=== PATIENT | female | born 1990 | race Caucasian/White ===

== ENCOUNTER 2016-05-21 18:44 | Emergency (ER) | payer OTHER ==
[~2016-05-21 18:44] MED LIST: ACET50TA PO; ANUS2.5C2 TOP; DOCU10CA PO; FE T325T PO; IBUP600T26 PO; MILKSUS PO; PRENTAB9 PO
[2016-05-21] MEDS ORDERED: KETOROLAC 30 MG/ML VIAL (J1885) As Ordered ONE (19:30)
[2016-05-21 19:47] LABS: BASO % 0.4 % (0.0-1.0); EOS # 0.1 K/mm3 (0.0-0.50); EOS % 1.7 % (0.0-3.0); LARGE UNSTAINED CELL # 0.2 K/mm3 (0.0-0.4); LYMPH # 2.6 K/mm3 (1.5-6.5); LYMPH % 41.7 % (24.0-44.0); MEAN CORPUSCULAR HEMOGLOBIN 29.2 pg (27.0-33.0); MEAN CORPUSCULAR HGB CONC 33.2 g/dl (32.0-36.5); MEAN CORPUSCULAR VOLUME 87.8 fl (80.0-96.0); MONO # 0.4 K/mm3 (0.0-0.8); MONO % 6.3 % (0.0-5.0); NEUTROPHILS # 2.9 K/mm3 (1.8-7.7); NEUTROPHILS % 46.9 % (36.0-66.0); PLATELET COUNT, AUTOMATED 214 k/mm3 (150-450); RED CELL DISTRIBUTION WIDTH 12.7 % (11.5-14.5); WHITE BLOOD COUNT 6.2 K/mm3 (4.0-10.0)
[2016-05-21 20:20] LABS: ALBUMIN 4.1 GM/DL (3.2-5.2); ALBUMIN/GLOBULIN RATIO 1.08 (1.00-1.93); ALKALINE PHOSPHATASE 138 U/L (45-117); ALT/SGPT 20 U/L (12-78); AMYLASE 47 U/L (25-115); ANION GAP 7 MEQ/L (8-16); AST/SGOT 17 U/L (15-37); BILIRUBIN,DIRECT < 0.1 MG/DL (0.0-0.2); BILIRUBIN,TOTAL 0.2 MG/DL (0.2-1.0); BLOOD UREA NITROGEN 17 MG/DL (7-18); CALCIUM LEVEL 8.7 MG/DL (8.5-10.1); CARBON DIOXIDE LEVEL 28 MEQ/L (21-32); CHLORIDE LEVEL 108 MEQ/L (98-107); CREATININE FOR GFR 0.66 MG/DL (0.55-1.02); GLOMERULAR FILTRATION RATE > 60.0 (>60); GLUCOSE, FASTING 97 MG/DL (70-105); POTASSIUM SERUM 3.7 MEQ/L (3.5-5.1); SODIUM LEVEL 143 MEQ/L (136-145); TOTAL PROTEIN 7.9 GM/DL (6.4-8.2)
--- NOTE | 2016-05-21 21:10 | REPUSA ---
CT of the abdomen and pelvis without contrast Clinical statement: Pain. Technique: Multiple axial CT images were obtained from the base of the lungs to the floor of the pelv is utilizing 5 mm axial slices without administration of contrast. Coronal and sagittal reconstructio ns were also obtained. No comparison is available. Findings: Chest: The visualized lung bases are clear. Abdomen: The kidneys are normal in size bilaterally. There is no evidence of hydronephrosis. A 1 mm n onobstructing stone is seen in the left kidney. The liver, spleen, pancreas, gallbladder and adrenal glands are unremarkable. The aorta demonstrates normal caliber and contour. There is no abdominal lym phadenopathy or ascites. Pelvis: Moderate amount of stool fills the colon.The bowel is otherwise unremarkable, with no obstruc tive or inflammatory changes. The appendix is normal. The urinary bladder is within normal limits. Th ere is no pelvic lymphadenopathy or ascites. The other pelvic structures appear unremarkable. Bones: There are no suspicious osseous abnormalities seen. Impression: 1. Mild constipation. No obstructive or inflammatory bowel changes. 2. 1 mm nonobstructing stone in the left kidney. No evidence of hydronephrosis.
--- NOTE | 2016-05-21 21:44 | EDDOCDS ---
Physician Documentation [facility] Name: Lyndsey Waters Age: 25 yrs Sex: Female : 1990 Arrival Date: 05/21/2016 Time: 18:44 Bed I3 / M3 Private MD: Donny Shi Disposition: 05/21/16 21:35 Discharged to Home/Self Care. Impression: Constipation, Calculus of kidney - LEFT, NONOBSTRUCTING. - Condition is Stable. - Discharge Instructions: Constipation, Adult, Kidney Stones. - Prescriptions for Miralax 17 gram/dose - take 17 gram by ORAL route once daily As needed dilute in 8 ounces of water or juice; 1 bottle. - Medication Reconciliation, Local Pharmacy Hours form. - Follow up: Donny Shi; When: 2 - 3 days; Reason: Recheck today's complaints, Continuance of care. - Problem is new. - Symptoms have improved. Historical: - Allergies: no known allergies; - Home Meds: 1. Depo-Provera 150 mg/mL IM syrg every 3 mo (Last dose: Unknown) - PMHx: L-ovarian cyst; - PSHx: Tonsillectomy; Adenoidectomy; - Social history: Smoking status: Patient states was never smoker of tobacco. Patient/guardian denies using alcohol, street drugs, No barriers to communication noted, The patient speaks fluent French, Speaks appropriately for age. - Family history: Not pertinent. - : The pt / caregiver states he / she is not on anticoagulants. Home medication list is obtained from the patient. - Exposure Risk Screening:: None identified. 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 3 in. (160.02 cm) (R); Pain 7/10; 21:41 BP 110 / 69; Pulse 89; Resp 16; Temp 97.4; Pulse Ox 99% on R/A; Pain 4/10; ld5 18:46 Body Mass Index 20.73 (53.07 kg, 160.02 cm) lr2 MDM: 19:27 UCG by Nursing ordered. ck7 19:28 Undress patient appropriately for examination ordered. ck7 19:28 IV Saline Lock ordered. ck7 19:28 NS 0.9% 1000 ml IV at bolus once ordered. ck7 19:28 Ondansetron 4 mg IVP once ordered. ck7 19:28 ketorolac 30 mg IVP once ordered. ck7 19:28 UA Ordered. EDMS 19:28 Urine Culture Ordered. EDMS 19:29 Amylase Ordered. EDMS 19:29 Basic Metabolic Profile Ordered. EDMS 19:29 CBC with Diff Ordered. EDMS 19:29 Lipase Ordered. EDMS 19:29 Liver Profile Ordered. EDMS 19:29 NOTHING BY MOUTH+DIET ordered. EDMS 20:19 Financial registration complete. zo 20:26 UA Reviewed. ck7 20:26 Basic Metabolic Profile Reviewed. ck7 20:26 CBC with Diff Reviewed. ck7 20:26 Liver Profile Reviewed. ck7 20:26 Amylase Reviewed. ck7 20:26 Lipase Reviewed. ck7 20:29 CT ABD & PELVIS: No Contrast Ordered. EDMS 20:33 [facility] [place] [facility] [place] was scanned into [employer] and attached to record. zo 21:30 CT ABD & PELVIS: No Contrast Reviewed. ck7 Point of Care Testing: Urine : 19:36 hCG Reading: Negative; Control Reading: Positive; jo3 Ranges: Administered Medications: 19:50 Drug: ketorolac 30 mg [ketorolac 30 mg/mL (1 mL) injection solution (1 mL)] Route: IVP; ld5 Site: left antecubital; 21:43 Follow up: Response: Pain is decreased ld5 19:51 Drug: NS 0.9% 1000 ml [sodium chloride 0.9 % intravenous solution] Route: IV; Rate: ld5 bolus; Site: left antecubital; 21:43 Follow up: IV Status: Completed infusion; IV Intake: 1000ml ld5 19:51 Drug: Ondansetron 4 mg [ondansetron HCl 2 mg/mL intravenous solution (2 mL)] Route: ld5 IVP; Site: left antecubital; 21:43 Follow up: Response: Nausea is decreased ld5 Signatures: Dispatcher [employer] EDMS Emily Chaudhary Laura, RN RN ld5 Manas Trammell, RPA-C RPA-Cck7 Teresa Gilmore, RN RN ttb The chart was reviewed and I authenticate all verbal orders and agree with the evaluation and treatment provided.Attachments: 20:33 [facility] Payment Agreement zo MTDD
--- NOTE | 2016-05-21 21:45 | EDDOCDS ---
Nurse's Notes [facility] Name: Lyndsey Waters Age: 25 yrs Sex: Female : 1990 Arrival Date: 05/21/2016 Time: 18:44 Bed I3 / M3 Private MD: Donny Shi Diagnosis: Constipation;Calculus of kidney-LEFT, NONOBSTRUCTING Presentation: 05/21 18:54 Presenting complaint: Patient states: right flank pain started approx 2 days ago. ttb Denies symptoms. Nauseated. Acute neurological deficits are not present. Mechanism of Injury: No Mechanism of Injury. Adult Sepsis Screening: The patient does not have new or worsening altered mentation. Patient's respiratory rate is less than 22. Systolic blood pressure is greater than 100. Patient has a qSOFA score of 0- Negative Sepsis Screen. Suicide/Homicide risk assessment- the patient denies having any suicidal and/or homicidal ideations and does not present with any other emotional, behavioral or mental health complaints. Status: Patient is not a service delivery director or dependent. Transition of care: patient was not received from another setting of care. 18:54 Acuity: MONET Level 3 ttb 18:54 Method Of Arrival: Walkin/Carried/Asstd ttb Triage Assessment: 18:56 General: Appears in no apparent distress, well nourished, well groomed, Behavior is ttb appropriate for age, cooperative, pleasant. Pain: Location: right lower abd. HIV screening NA for this visit Offered previously. Neurological: Level of Consciousness is awake, alert. Respiratory: Breath sounds are absent bilaterally. GI: Reports lower abdominal pain, nausea. Derm: Skin is normal. Musculoskeletal: Range of motion intact in all extremities. Injury Description: No known injury. 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 Depo-Provera 150 mg/mL IM syrg every 3 mo (Last dose: Unknown) - PMHx: L-ovarian cyst; - PSHx: Tonsillectomy; Adenoidectomy; - Social history: Smoking status: Patient states was never smoker of tobacco. Patient/guardian denies using alcohol, street drugs, No barriers to communication noted, The patient speaks fluent Greek, Speaks appropriately for age. - Family history: Not pertinent. - : The pt / caregiver states he / she is not on anticoagulants. Home medication list is obtained from the patient. - Exposure Risk Screening:: None identified. Screenin:51 Screening information is obtained from the patient. Fall risk: No risks identified. ld5 Assistance ADL's: requires no assistance with activities of daily living. Abuse/DV Screen: The patient / caregiver reports he/she is: not in a situation that causes fear, pain or injury. Nutritional screening: No deficits noted. Advance Directives: There is no active DNR order. home support is adequate. Assessment: 19:07 General: Appears in no apparent distress, Behavior is appropriate for age, cooperative. nn1 Pain: Location: right mid back, right low back, right upper quadrant and right lower quadrant Quality of pain is described as sharp, Pain began 2-3 days ago. Neurological: Level of Consciousness is awake, alert, obeys commands, Oriented to person, place, time. GI: Abdomen is non- distended Bowel sounds present X 4 quads. Abd is soft X 4 quads Abd is tender to palpation in right upper quadrant and right lower quadrant Reports nausea. : Denies burning with urination, pain vaginal bleeding. Derm: Skin is pink, warm & dry. 19:52 General: Appears in no apparent distress, Behavior is appropriate for age, cooperative. ld5 Pain: Location: right flank, posterior aspect of right lateral abdomen, anterior aspect of right lateral abdomen and right lower quadrant Pain currently is 5 out of 10 on a pain scale. At worst was 10 out of 10 on a pain scale. Quality of pain is described as sharp. Neurological: Level of Consciousness is awake, alert. Respiratory: Airway is patent Respiratory effort is even, unlabored, Breath sounds are clear bilaterally. GI: Abdomen is non- distended Bowel sounds present X 4 quads. Abd is tender to palpation in right lower quadrant Reports nausea. Derm: Skin is intact, Skin is dry, Skin is normal. 21:04 General: Pt returned from CT. Tolerated well. Will continue to monitor. ld5 21:41 General: Appears in no apparent distress, Behavior is cooperative. Pain: Pain currently ld5 is 4 out of 10 on a pain scale. Neurological: Level of Consciousness is awake, alert. Respiratory: Airway is patent Respiratory effort is even, unlabored. Vital Signs: 18:46 BP 114 / 66; Pulse 94; Resp 18; Temp 99.0(O); Pulse Ox 99% on R/A; Weight 53.07 kg (R); lr2 Height 5 ft. 3 in. (160.02 cm) (R); Pain 7/10; 21:41 BP 110 / 69; Pulse 89; Resp 16; Temp 97.4; Pulse Ox 99% on R/A; Pain 4/10; ld5 18:46 Body Mass Index 20.73 (53.07 kg, 160.02 cm) lr2 Vitals: 18:46 Log In Time: May 21, 2016 at 18:43. lr2 ED Course: 18:45 Patient visited by Doreen Antonio. lr2 18:45 Patient moved to Waiting lr2 18:46 Donny Shi is Private Physician. lr2 18:47 Patient visited by Doreen Antonio. lr2 18:47 Patient moved to Pre RCE lr2 18:55 Triage Initiated ttb 19:06 Patient moved to Triage 1 nn1 19:16 Manas Trammell RPA-C is PHCP. ck7 19:16 Vipin Byrne DO is Attending Physician. ck7 19:16 Patient visited by Manas Trammell RPA-C. ck7 19:31 Patient moved to I3 / M3 nn1 19:51 The patient / caregiver is instructed regarding the plan of care and ED course. Patient ld5 has correct armband on for positive identification. Placed in gown. Bed in low position. Call light in reach. 19:51 Inserted saline lock: 20 gauge in left antecubital area and blood collected. The ld5 patient tolerated the procedure well. Labs drawn. (by ED staff). Sent per order to lab. Urine collected. Clean catch specimen. Urine specimen sent to lab. 19:54 Patient visited by Doreen Booker RN. ld5 20:25 Patient visited by Manas Trammell RPA-C. ck7 20:33 [facility] Payment Agreement was scanned into [employer] and attached to record. zo 20:55 Patient visited by Lauren Osborn RN. kas2 21:04 Patient visited by Doreen Booker RN. ld5 21:23 CT ABD & PELVIS: No Contrast Returned. EDMS 21:34 Patient visited by Manas Trammell RPA-C. ck7 21:35 Donny Shi is Referral Physician. ck7 21:38 Patient visited by Lauren Osborn RN. kas2 21:38 Discontinued IV bleeding controlled, pressure dressing applied, No redness/swelling at kas2 site. 21:41 No procedures done that require assistance. ld5 21:44 Patient visited by Doreen Booker RN. ld5 Administered Medications: 19:50 Drug: ketorolac 30 mg [ketorolac 30 mg/mL (1 mL) injection solution (1 mL)] Route: IVP; ld5 Site: left antecubital; 21:43 Follow up: Response: Pain is decreased ld5 19:51 Drug: NS 0.9% 1000 ml [sodium chloride 0.9 % intravenous solution] Route: IV; Rate: ld5 bolus; Site: left antecubital; 21:43 Follow up: IV Status: Completed infusion; IV Intake: 1000ml ld5 19:51 Drug: Ondansetron 4 mg [ondansetron HCl 2 mg/mL intravenous solution (2 mL)] Route: ld5 IVP; Site: left antecubital; 21:43 Follow up: Response: Nausea is decreased ld5 Point of Care Testing: Urine : 19:36 hCG Reading: Negative; Control Reading: Positive; jo3 Ranges: Intake: 21:43 IV: 1000.00ml; Total: 1000.00ml. ld5 Order Results: Lab Order: UA; SPEC'M 05/21/16 19:34 Test: APPEARANCE, URINE; Value: HAZY; Range: CLEAR; Status: F Test: COLOR, URINE; Value: YELLOW; Range: YELLOW; Status: F Test: PH,URINE; Value: 5.0; Range: 5.0-9.0; Units: UNITS; Status: F Test: SPECIFIC GRAVITY URINE AUTO; Value: 1.027; Range: 1.002-1.035; Status: F Test: PROTEIN, URINE AUTO; Value: NEGATIVE; Range: NEGATIVE; Units: mg/dL; Status: F Test: GLUCOSE, URINE (UA) AUTO; Value: NEGATIVE; Range: NEGATIVE; Units: mg/dL; Status: F Test: KETONE, URINE AUTO; Value: NEGATIVE; Range: NEGATIVE; Units: mg/dL; Status: F Test: UROBILINOGEN, URINE AUTO; Value: 0.2; Range: 0.0-2.0; Units: mg/dL; Status: F Test: BILIRUBIN, URINE AUTO; Value: NEGATIVE; Range: NEGATIVE; Status: F Test: NITRITE, URINE AUTO; Value: NEGATIVE; Range: NEGATIVE; Status: F Test: LEUKOCYTE ESTERASE, URINE AUTO; Value: TRACE; Range: NEGATIVE; Abnormal: Above high normal; Status: F Test: BLOOD, URINE BLOOD; Value: NEGATIVE; Range: NEGATIVE; Status: F Test: WBC, URINE AUTO; Value: 11; Range: 0-3; Abnormal: Above high normal; Units: /HPF; Status: F Test: RBC, URINE AUTO; Value: 2; Range: 0-3; Units: /HPF; Status: F Test: BACTERIA, URINE AUTO; Value: 1+; Range: NEGATIVE; Abnormal: Above high normal; Status: F Test: SQUAMOUS EPITHELIAL CELL UR AU; Value: 7; Range: 0-6; Units: /HPF; Status: F Test: MUCUS, URINE; Value: MODERATE; Range: NEGATIVE; Status: F Test: HYALINE CAST, URINE AUTO; Value: 0; Range: 0-1; Units: /LPF; Status: F Lab Order: Amylase; SPEC'M 05/21/16 19:38 Test: AMYLASE; Value: 47; Range: 25-115; Units: U/L; Status: F Lab Order: Basic Metabolic Profile; SPEC' 05/21/16 19:38 Test: GLUCOSE, FASTING; Value: 97; Range: 70-105; Units: MG/DL; Status: F Test: BLOOD UREA NITROGEN; Value: 17; Range: 7-18; Units: MG/DL; Status: F Test: CREATININE FOR GFR; Value: 0.66; Range: 0.55-1.02; Units: MG/DL; Status: F Test: GLOMERULAR FILTRATION RATE; Value: > 60.0; Range: >60; Status: F Test: SODIUM LEVEL; Value: 143; Range: 136-145; Units: MEQ/L; Status: F Test: POTASSIUM SERUM; Value: 3.7; Range: 3.5-5.1; Units: MEQ/L; Status: F Test: CHLORIDE LEVEL; Value: 108; Range: 98-107; Abnormal: Above high normal; Units: MEQ/L; Status: F Test: CARBON DIOXIDE LEVEL; Value: 28; Range: 21-32; Units: MEQ/L; Status: F Test: ANION GAP; Value: 7; Range: 8-16; Abnormal: Below low normal; Units: MEQ/L; Status: F Test: CALCIUM LEVEL; Value: 8.7; Range: 8.5-10.1; Units: MG/DL; Status: F Test Note: ; Units are mL/min/1.73 m2 Chronic Kidney Disease Staging per NKF: Stage I & II GFR >=60 Normal to Mildly Decreased Stage III GFR 30-59 Moderately Decreased Stage IV GFR 15-29 Severely Decreased Stage V GFR <15 Very Little GFR Left ESRD GFR <15 on HAZARDOUS WASTE MATERIAL TECHNICIAN Lab Order: CBC with Diff; SPEC'M 05/21/16 19:38 Test: WHITE BLOOD COUNT; Value: 6.2; Range: 4.0-10.0; Units: K/mm3; Status: F Test: RED BLOOD COUNT; Value: 4.49; Range: 4.00-5.40; Units: M/mm3; Status: F Test: HEMOGLOBIN; Value: 13.1; Range: 12.0-16.0; Units: g/dl; Status: F Test: HEMATOCRIT; Value: 39.4; Range: 36.0-47.0; Units: %; Status: F Test: MEAN CORPUSCULAR VOLUME; Value: 87.8; Range: 80.0-96.0; Units: fl; Status: F Test: MEAN CORPUSCULAR HEMOGLOBIN; Value: 29.2; Range: 27.0-33.0; Units: pg; Status: F Test: MEAN CORPUSCULAR HGB CONC; Value: 33.2; Range: 32.0-36.5; Units: g/dl; Status: F Test: RED CELL DISTRIBUTION WIDTH; Value: 12.7; Range: 11.5-14.5; Units: %; Status: F Test: PLATELET COUNT, AUTOMATED; Value: 214; Range: 150-450; Units: k/mm3; Status: F Test: NEUTROPHILS %; Value: 46.9; Range: 36.0-66.0; Units: %; Status: F Test: LYMPH %; Value: 41.7; Range: 24.0-44.0; Units: %; Status: F Test: MONO %; Value: 6.3; Range: 0.0-5.0; Abnormal: Above high normal; Units: %; Status: F Test: EOS %; Value: 1.7; Range: 0.0-3.0; Units: %; Status: F Test: BASO %; Value: 0.4; Range: 0.0-1.0; Units: %; Status: F Test: LARGE UNSTAINED CELL %; Value: 3.0; Range: 0.0-4.0; Units: %; Status: F Test: NEUTROPHILS #; Value: 2.9; Range: 1.8-7.7; Units: K/mm3; Status: F Test: LYMPH #; Value: 2.6; Range: 1.5-6.5; Units: K/mm3; Status: F Test: MONO #; Value: 0.4; Range: 0.0-0.8; Units: K/mm3; Status: F Test: EOS #; Value: 0.1; Range: 0.0-0.50; Units: K/mm3; Status: F Test: BASO #; Value: 0.0; Range: 0.0-0.2; Units: K/mm3; Status: F Test: LARGE UNSTAINED CELL #; Value: 0.2; Range: 0.0-0.4; Units: K/mm3; Status: F Lab Order: Lipase; [facility] 05/21/16 19:38 Test: LIPASE; Value: 90; Range: 73-393; Units: U/L; Status: F Lab Order: Liver Profile; [facility] 05/21/16 19:38 Test: AST/SGOT; Value: 17; Range: 15-37; Units: U/L; Status: F Test: ALT/SGPT; Value: 20; Range: 12-78; Units: U/L; Status: F Test: ALKALINE PHOSPHATASE; Value: 138; Range: 45-117; Abnormal: Above high normal; Units: U/L; Status: F Test: BILIRUBIN,TOTAL; Value: 0.2; Range: 0.2-1.0; Units: MG/DL; Status: F Test: BILIRUBIN,DIRECT; Value: < 0.1; Range: 0.0-0.2; Units: MG/DL; Status: F Test: TOTAL PROTEIN; Value: 7.9; Range: 6.4-8.2; Units: GM/DL; Status: F Test: ALBUMIN; Value: 4.1; Range: 3.2-5.2; Units: GM/DL; Status: F Test: ALBUMIN/GLOBULIN RATIO; Value: 1.08; Range: 1.00-1.93; Status: F Radiology Order: CT ABD & PELVIS: No Contrast Test: CT ABD & PELVIS: No Contrast REASON FOR EXAMINATION: R/O RIGHT KIDNEY STONE; ; CT of the abdomen and pelvis without contrast; Clinical statement: Pain.; Technique: Multiple axial CT images were obtained from the base of the lungs to the floor of the pelv; is utilizing 5 mm axial slices without administration of contrast. Coronal and sagittal reconstructio; ns were also obtained.; No comparison is available.; Findings:; Chest: The visualized lung bases are clear.; Abdomen: The kidneys are normal in size bilaterally. There is no evidence of hydronephrosis. A 1 mm n; onobstructing stone is seen in the left kidney. The liver, spleen, pancreas, gallbladder and adrenal; glands are unremarkable. The aorta demonstrates normal caliber and contour. There is no abdominal lym; phadenopathy or ascites.; Pelvis: Moderate amount of stool fills the colon.The bowel is otherwise unremarkable, with no obstruc; tive or inflammatory changes. The appendix is normal. The urinary bladder is within normal limits. Th; ere is no pelvic lymphadenopathy or ascites. The other pelvic structures appear unremarkable.; Bones: There are no suspicious osseous abnormalities seen.; Impression:; 1. Mild constipation. No obstructive or inflammatory bowel changes.; 2. 1 mm nonobstructing stone in the left kidney. No evidence of hydronephrosis.; ; Outcome: 21:35 Discharge ordered by Provider. ck7 21:41 Discharge Assessment: Patient awake, alert and oriented x 3. No cognitive and/or ld5 functional deficits noted. Patient verbalized understanding of disposition instructions. patient administered narcotics - no. The following High Risk Discharge criteria are identified: None. Discharged to home ambulatory, with family. Condition: stable. Discharge instructions given to patient, Instructed on discharge instructions, follow up and referral plans. medication usage, Demonstrated understanding of instructions, medications, Pt was receptive of discharge instructions/ teaching. Prescriptions given X 1. CT Study completed. Property :Personal belongings accompany Pt. 21:44 Patient left the ED. ld5 Signatures: Dispatcher [employer] EDMS Ninfa Shipley,RN RN jo3 Emily Chaudhary Laura, RN RN ld5 Manas Trammell, RPA-C RPA-Cck7 Teresa Gilmore RN RN Delia YatesRN RN nn1 Lauren Osborn RN RN [id number] Doreen Antonio2 MTDD
[2016-05-22] MEDS ORDERED: METAL LOCK LOOP XX ONE (00:58)
--- NOTE | 2016-05-23 22:45 | EDDOCDS ---
Nurse's Notes [facility] Name: Lyndsey Waters Age: 25 yrs Sex: Female : 1990 Arrival Date: 05/21/2016 Time: 18:44 Bed I3 / M3 Private MD: Donny Shi Diagnosis: Constipation;Calculus of kidney-LEFT, NONOBSTRUCTING Presentation: 05/21 18:54 Presenting complaint: Patient states: right flank pain started approx 2 days ago. ttb Denies symptoms. Nauseated. Acute neurological deficits are not present. Mechanism of Injury: No Mechanism of Injury. Adult Sepsis Screening: The patient does not have new or worsening altered mentation. Patient's respiratory rate is less than 22. Systolic blood pressure is greater than 100. Patient has a qSOFA score of 0- Negative Sepsis Screen. Suicide/Homicide risk assessment- the patient denies having any suicidal and/or homicidal ideations and does not present with any other emotional, behavioral or mental health complaints. Status: Patient is not a library services assistant or dependent. Transition of care: patient was not received from another setting of care. 18:54 Acuity: MONET Level 3 ttb 18:54 Method Of Arrival: Walkin/Carried/Asstd ttb Triage Assessment: 18:56 General: Appears in no apparent distress, well nourished, well groomed, Behavior is ttb appropriate for age, cooperative, pleasant. Pain: Location: right lower abd. HIV screening NA for this visit Offered previously. Neurological: Level of Consciousness is awake, alert. Respiratory: Breath sounds are absent bilaterally. GI: Reports lower abdominal pain, nausea. Derm: Skin is normal. Musculoskeletal: Range of motion intact in all extremities. Injury Description: No known injury. 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 Depo-Provera 150 mg/mL IM syrg every 3 mo (Last dose: Unknown) - PMHx: L-ovarian cyst; - PSHx: Tonsillectomy; Adenoidectomy; - Social history: Smoking status: Patient states was never smoker of tobacco. Patient/guardian denies using alcohol, street drugs, No barriers to communication noted, The patient speaks fluent Faroese, Speaks appropriately for age. - Family history: Not pertinent. - : The pt / caregiver states he / she is not on anticoagulants. Home medication list is obtained from the patient. - Exposure Risk Screening:: None identified. Screenin:51 Screening information is obtained from the patient. Fall risk: No risks identified. ld5 Assistance ADL's: requires no assistance with activities of daily living. Abuse/DV Screen: The patient / caregiver reports he/she is: not in a situation that causes fear, pain or injury. Nutritional screening: No deficits noted. Advance Directives: There is no active DNR order. home support is adequate. Assessment: 19:07 General: Appears in no apparent distress, Behavior is appropriate for age, cooperative. nn1 Pain: Location: right mid back, right low back, right upper quadrant and right lower quadrant Quality of pain is described as sharp, Pain began 2-3 days ago. Neurological: Level of Consciousness is awake, alert, obeys commands, Oriented to person, place, time. GI: Abdomen is non- distended Bowel sounds present X 4 quads. Abd is soft X 4 quads Abd is tender to palpation in right upper quadrant and right lower quadrant Reports nausea. : Denies burning with urination, pain vaginal bleeding. Derm: Skin is pink, warm & dry. 19:52 General: Appears in no apparent distress, Behavior is appropriate for age, cooperative. ld5 Pain: Location: right flank, posterior aspect of right lateral abdomen, anterior aspect of right lateral abdomen and right lower quadrant Pain currently is 5 out of 10 on a pain scale. At worst was 10 out of 10 on a pain scale. Quality of pain is described as sharp. Neurological: Level of Consciousness is awake, alert. Respiratory: Airway is patent Respiratory effort is even, unlabored, Breath sounds are clear bilaterally. GI: Abdomen is non- distended Bowel sounds present X 4 quads. Abd is tender to palpation in right lower quadrant Reports nausea. Derm: Skin is intact, Skin is dry, Skin is normal. 21:04 General: Pt returned from CT. Tolerated well. Will continue to monitor. ld5 21:41 General: Appears in no apparent distress, Behavior is cooperative. Pain: Pain currently ld5 is 4 out of 10 on a pain scale. Neurological: Level of Consciousness is awake, alert. Respiratory: Airway is patent Respiratory effort is even, unlabored. Vital Signs: 18:46 BP 114 / 66; Pulse 94; Resp 18; Temp 99.0(O); Pulse Ox 99% on R/A; Weight 53.07 kg (R); lr2 Height 5 ft. 3 in. (160.02 cm) (R); Pain 7/10; 21:41 BP 110 / 69; Pulse 89; Resp 16; Temp 97.4; Pulse Ox 99% on R/A; Pain 4/10; ld5 18:46 Body Mass Index 20.73 (53.07 kg, 160.02 cm) lr2 Vitals: 18:46 Log In Time: May 21, 2016 at 18:43. lr2 ED Course: 18:45 Patient visited by Doreen Antonio. lr2 18:45 Patient moved to Waiting lr2 18:46 Donny Shi is Private Physician. lr2 18:47 Patient visited by Doreen Antonio. lr2 18:47 Patient moved to Pre RCE lr2 18:55 Triage Initiated ttb 19:06 Patient moved to Triage 1 nn1 19:16 Manas Trammell RPA-C is PHCP. ck7 19:16 Vipin Byrne DO is Attending Physician. ck7 19:16 Patient visited by Manas Trammell RPA-C. ck7 19:31 Patient moved to I3 / M3 nn1 19:51 The patient / caregiver is instructed regarding the plan of care and ED course. Patient ld5 has correct armband on for positive identification. Placed in gown. Bed in low position. Call light in reach. 19:51 Inserted saline lock: 20 gauge in left antecubital area and blood collected. The ld5 patient tolerated the procedure well. Labs drawn. (by ED staff). Sent per order to lab. Urine collected. Clean catch specimen. Urine specimen sent to lab. 19:54 Patient visited by Doreen Booker RN. ld5 20:25 Patient visited by Manas Trammell RPA-C. ck7 20:33 [facility] Payment Agreement was scanned into [employer] and attached to record. zo 20:55 Patient visited by Lauren Osborn RN. kas2 21:04 Patient visited by Doreen Booker RN. ld5 21:23 CT ABD & PELVIS: No Contrast Returned. EDMS 21:34 Patient visited by Manas Trammell RPA-C. ck7 21:35 Donny Shi is Referral Physician. ck7 21:38 Patient visited by Lauren Osborn RN. kas2 21:38 Discontinued IV bleeding controlled, pressure dressing applied, No redness/swelling at [facility] site. 21:41 No procedures done that require assistance. ld5 21:44 Patient visited by Doreen Booker RN. ld5 05/22 11:05 T-Sheet-- Draft Copy was scanned into [employer] and attached to record. gb 17:39 Radiology Report was scanned into [employer] and attached to record. gb Administered Medications: 05/21 19:50 Drug: ketorolac 30 mg [ketorolac 30 mg/mL (1 mL) injection solution (1 mL)] Route: IVP; ld5 Site: left antecubital; 21:43 Follow up: Response: Pain is decreased ld5 19:51 Drug: NS 0.9% 1000 ml [sodium chloride 0.9 % intravenous solution] Route: IV; Rate: ld5 bolus; Site: left antecubital; 21:43 Follow up: IV Status: Completed infusion; IV Intake: 1000ml ld5 19:51 Drug: Ondansetron 4 mg [ondansetron HCl 2 mg/mL intravenous solution (2 mL)] Route: ld5 IVP; Site: left antecubital; 21:43 Follow up: Response: Nausea is decreased ld5 Point of Care Testing: Urine : 19:36 hCG Reading: Negative; Control Reading: Positive; jo3 Ranges: Intake: 21:43 IV: 1000.00ml; Total: 1000.00ml. ld5 Order Results: Lab Order: UA; SPEC'M 05/21/16 19:34 Test: APPEARANCE, URINE; Value: HAZY; Range: CLEAR; Status: F Test: COLOR, URINE; Value: YELLOW; Range: YELLOW; Status: F Test: PH,URINE; Value: 5.0; Range: 5.0-9.0; Units: UNITS; Status: F Test: SPECIFIC GRAVITY URINE AUTO; Value: 1.027; Range: 1.002-1.035; Status: F Test: PROTEIN, URINE AUTO; Value: NEGATIVE; Range: NEGATIVE; Units: mg/dL; Status: F Test: GLUCOSE, URINE (UA) AUTO; Value: NEGATIVE; Range: NEGATIVE; Units: mg/dL; Status: F Test: KETONE, URINE AUTO; Value: NEGATIVE; Range: NEGATIVE; Units: mg/dL; Status: F Test: UROBILINOGEN, URINE AUTO; Value: 0.2; Range: 0.0-2.0; Units: mg/dL; Status: F Test: BILIRUBIN, URINE AUTO; Value: NEGATIVE; Range: NEGATIVE; Status: F Test: NITRITE, URINE AUTO; Value: NEGATIVE; Range: NEGATIVE; Status: F Test: LEUKOCYTE ESTERASE, URINE AUTO; Value: TRACE; Range: NEGATIVE; Abnormal: Above high normal; Status: F Test: BLOOD, URINE BLOOD; Value: NEGATIVE; Range: NEGATIVE; Status: F Test: WBC, URINE AUTO; Value: 11; Range: 0-3; Abnormal: Above high normal; Units: /HPF; Status: F Test: RBC, URINE AUTO; Value: 2; Range: 0-3; Units: /HPF; Status: F Test: BACTERIA, URINE AUTO; Value: 1+; Range: NEGATIVE; Abnormal: Above high normal; Status: F Test: SQUAMOUS EPITHELIAL CELL UR AU; Value: 7; Range: 0-6; Units: /HPF; Status: F Test: MUCUS, URINE; Value: MODERATE; Range: NEGATIVE; Status: F Test: HYALINE CAST, URINE AUTO; Value: 0; Range: 0-1; Units: /LPF; Status: F Lab Order: Urine Culture; SPEC'M 05/21/16 19:34 Test: URINE CULTURE; Value: <EXTERNAL COMMENT eCWMed> FULL REPORT IN LAB NOTES (eCW and Medent).; Status: F Test: URINE CULTURE; Value: URINE CULTURE RESULT NO GROWTH; Status: F Lab Order: Amylase; SPEC'M 05/21/16 19:38 Test: AMYLASE; Value: 47; Range: 25-115; Units: U/L; Status: F Lab Order: Basic Metabolic Profile; SPEC'M 05/21/16 19:38 Test: GLUCOSE, FASTING; Value: 97; Range: 70-105; Units: MG/DL; Status: F Test: BLOOD UREA NITROGEN; Value: 17; Range: 7-18; Units: MG/DL; Status: F Test: CREATININE FOR GFR; Value: 0.66; Range: 0.55-1.02; Units: MG/DL; Status: F Test: GLOMERULAR FILTRATION RATE; Value: > 60.0; Range: >60; Status: F Test: SODIUM LEVEL; Value: 143; Range: 136-145; Units: MEQ/L; Status: F Test: POTASSIUM SERUM; Value: 3.7; Range: 3.5-5.1; Units: MEQ/L; Status: F Test: CHLORIDE LEVEL; Value: 108; Range: 98-107; Abnormal: Above high normal; Units: MEQ/L; Status: F Test: CARBON DIOXIDE LEVEL; Value: 28; Range: 21-32; Units: MEQ/L; Status: F Test: ANION GAP; Value: 7; Range: 8-16; Abnormal: Below low normal; Units: MEQ/L; Status: F Test: CALCIUM LEVEL; Value: 8.7; Range: 8.5-10.1; Units: MG/DL; Status: F Test Note: ; Units are mL/min/1.73 m2 Chronic Kidney Disease Staging per NKF: Stage I & II GFR >=60 Normal to Mildly Decreased Stage III GFR 30-59 Moderately Decreased Stage IV GFR 15-29 Severely Decreased Stage V GFR <15 Very Little GFR Left ESRD GFR <15 on TRANSITION OF CARE SPECIALIST Lab Order: CBC with Diff; SPEC'M 05/21/16 19:38 Test: WHITE BLOOD COUNT; Value: 6.2; Range: 4.0-10.0; Units: K/mm3; Status: F Test: RED BLOOD COUNT; Value: 4.49; Range: 4.00-5.40; Units: M/mm3; Status: F Test: HEMOGLOBIN; Value: 13.1; Range: 12.0-16.0; Units: g/dl; Status: F Test: HEMATOCRIT; Value: 39.4; Range: 36.0-47.0; Units: %; Status: F Test: MEAN CORPUSCULAR VOLUME; Value: 87.8; Range: 80.0-96.0; Units: fl; Status: F Test: MEAN CORPUSCULAR HEMOGLOBIN; Value: 29.2; Range: 27.0-33.0; Units: pg; Status: F Test: MEAN CORPUSCULAR HGB CONC; Value: 33.2; Range: 32.0-36.5; Units: g/dl; Status: F Test: RED CELL DISTRIBUTION WIDTH; Value: 12.7; Range: 11.5-14.5; Units: %; Status: F Test: PLATELET COUNT, AUTOMATED; Value: 214; Range: 150-450; Units: k/mm3; Status: F Test: NEUTROPHILS %; Value: 46.9; Range: 36.0-66.0; Units: %; Status: F Test: LYMPH %; Value: 41.7; Range: 24.0-44.0; Units: %; Status: F Test: MONO %; Value: 6.3; Range: 0.0-5.0; Abnormal: Above high normal; Units: %; Status: F Test: EOS %; Value: 1.7; Range: 0.0-3.0; Units: %; Status: F Test: BASO %; Value: 0.4; Range: 0.0-1.0; Units: %; Status: F Test: LARGE UNSTAINED CELL %; Value: 3.0; Range: 0.0-4.0; Units: %; Status: F Test: NEUTROPHILS #; Value: 2.9; Range: 1.8-7.7; Units: K/mm3; Status: F Test: LYMPH #; Value: 2.6; Range: 1.5-6.5; Units: K/mm3; Status: F Test: MONO #; Value: 0.4; Range: 0.0-0.8; Units: K/mm3; Status: F Test: EOS #; Value: 0.1; Range: 0.0-0.50; Units: K/mm3; Status: F Test: BASO #; Value: 0.0; Range: 0.0-0.2; Units: K/mm3; Status: F Test: LARGE UNSTAINED CELL #; Value: 0.2; Range: 0.0-0.4; Units: K/mm3; Status: F Lab Order: Lipase; SPEC'M 05/21/16 19:38 Test: LIPASE; Value: 90; Range: 73-393; Units: U/L; Status: F Lab Order: Liver Profile; SPEC'M 05/21/16 19:38 Test: AST/SGOT; Value: 17; Range: 15-37; Units: U/L; Status: F Test: ALT/SGPT; Value: 20; Range: 12-78; Units: U/L; Status: F Test: ALKALINE PHOSPHATASE; Value: 138; Range: 45-117; Abnormal: Above high normal; Units: U/L; Status: F Test: BILIRUBIN,TOTAL; Value: 0.2; Range: 0.2-1.0; Units: MG/DL; Status: F Test: BILIRUBIN,DIRECT; Value: < 0.1; Range: 0.0-0.2; Units: MG/DL; Status: F Test: TOTAL PROTEIN; Value: 7.9; Range: 6.4-8.2; Units: GM/DL; Status: F Test: ALBUMIN; Value: 4.1; Range: 3.2-5.2; Units: GM/DL; Status: F Test: ALBUMIN/GLOBULIN RATIO; Value: 1.08; Range: 1.00-1.93; Status: F Radiology Order: CT ABD & PELVIS: No Contrast Test: CT ABD & PELVIS: No Contrast REASON FOR EXAMINATION: R/O RIGHT KIDNEY STONE; ; CT of the abdomen and pelvis without contrast; Clinical statement: Pain.; Technique: Multiple axial CT images were obtained from the base of the lungs to the floor of the pelv; is utilizing 5 mm axial slices without administration of contrast. Coronal and sagittal reconstructio; ns were also obtained.; No comparison is available.; Findings:; Chest: The visualized lung bases are clear.; Abdomen: The kidneys are normal in size bilaterally. There is no evidence of hydronephrosis. A 1 mm n; onobstructing stone is seen in the left kidney. The liver, spleen, pancreas, gallbladder and adrenal; glands are unremarkable. The aorta demonstrates normal caliber and contour. There is no abdominal lym; phadenopathy or ascites.; Pelvis: Moderate amount of stool fills the colon.The bowel is otherwise unremarkable, with no obstruc; tive or inflammatory changes. The appendix is normal. The urinary bladder is within normal limits. Th; ere is no pelvic lymphadenopathy or ascites. The other pelvic structures appear unremarkable.; Bones: There are no suspicious osseous abnormalities seen.; Impression:; 1. Mild constipation. No obstructive or inflammatory bowel changes.; 2. 1 mm nonobstructing stone in the left kidney. No evidence of hydronephrosis.; ; Outcome: 21:35 Discharge ordered by Provider. ck7 21:41 Discharge Assessment: Patient awake, alert and oriented x 3. No cognitive and/or ld5 functional deficits noted. Patient verbalized understanding of disposition instructions. patient administered narcotics - no. The following High Risk Discharge criteria are identified: None. Discharged to home ambulatory, with family. Condition: stable. Discharge instructions given to patient, Instructed on discharge instructions, follow up and referral plans. medication usage, Demonstrated understanding of instructions, medications, Pt was receptive of discharge instructions/ teaching. Prescriptions given X 1. CT Study completed. Property :Personal belongings accompany Pt. 21:44 Patient left the ED. ld5 Signatures: Dispatcher [employer] EDMS Lurdes Hernandez, Reg Reg Ninfa Delgado,RN RN [id number] Emily Chaudhary Laura,RN RN ld5 Manas Trammell, RPA-C RPA-Cck7 Teresa Gilmore, RN RN Delia YatesRN RN nn1 Lauren Osborn RN RN Doreen Valencia2 Chart Complete MTDD
--- NOTE | 2016-05-23 22:45 | EDDOCDS ---
Physician Documentation [facility] Name: Lyndsey Waters Age: 25 yrs Sex: Female : 1990 Arrival Date: 05/21/2016 Time: 18:44 Bed I3 / M3 Private MD: Donny Shi Disposition: 05/21/16 21:35 Discharged to Home/Self Care. Impression: Constipation, Calculus of kidney - LEFT, NONOBSTRUCTING. - Condition is Stable. - Discharge Instructions: Constipation, Adult, Kidney Stones. - Prescriptions for Miralax 17 gram/dose - take 17 gram by ORAL route once daily As needed dilute in 8 ounces of water or juice; 1 bottle. - Medication Reconciliation, Local Pharmacy Hours form. - Follow up: Donny Shi; When: 2 - 3 days; Reason: Recheck today's complaints, Continuance of care. - Problem is new. - Symptoms have improved. Historical: - Allergies: no known allergies; - Home Meds: 1. Depo-Provera 150 mg/mL IM syrg every 3 mo (Last dose: Unknown) - PMHx: L-ovarian cyst; - PSHx: Tonsillectomy; Adenoidectomy; - Social history: Smoking status: Patient states was never smoker of tobacco. Patient/guardian denies using alcohol, street drugs, No barriers to communication noted, The patient speaks fluent Turkmen, Speaks appropriately for age. - Family history: Not pertinent. - : The pt / caregiver states he / she is not on anticoagulants. Home medication list is obtained from the patient. - Exposure Risk Screening:: None identified. 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 3 in. (160.02 cm) (R); Pain 7/10; 21:41 BP 110 / 69; Pulse 89; Resp 16; Temp 97.4; Pulse Ox 99% on R/A; Pain 4/10; ld5 18:46 Body Mass Index 20.73 (53.07 kg, 160.02 cm) lr2 MDM: 19:27 UCG by Nursing ordered. ck7 19:28 Undress patient appropriately for examination ordered. ck7 19:28 IV Saline Lock ordered. ck7 19:28 NS 0.9% 1000 ml IV at bolus once ordered. ck7 19:28 Ondansetron 4 mg IVP once ordered. ck7 19:28 ketorolac 30 mg IVP once ordered. ck7 19:28 UA Ordered. EDMS 19:28 Urine Culture Ordered. EDMS 19:29 Amylase Ordered. EDMS 19:29 Basic Metabolic Profile Ordered. EDMS 19:29 CBC with Diff Ordered. EDMS 19:29 Lipase Ordered. EDMS 19:29 Liver Profile Ordered. EDMS 19:29 NOTHING BY MOUTH+DIET ordered. EDMS 20:19 Financial registration complete. zo 20:26 UA Reviewed. ck7 20:26 Basic Metabolic Profile Reviewed. ck7 20:26 CBC with Diff Reviewed. ck7 20:26 Liver Profile Reviewed. ck7 20:26 Amylase Reviewed. ck7 20:26 Lipase Reviewed. ck7 20:29 CT ABD & PELVIS: No Contrast Ordered. EDMS 20:33 [facility] Payment Agreement was scanned into [employer] and attached to record. zo 21:30 CT ABD & PELVIS: No Contrast Reviewed. ck7 05/22 11:05 T-Sheet-- Draft Copy was scanned into [employer] and attached to record. gb 17:39 Radiology Report was scanned into [employer] and attached to record. gb Point of Care Testing: Urine : 05/21 19:36 hCG Reading: Negative; Control Reading: Positive; jo3 Ranges: Administered Medications: 19:50 Drug: ketorolac 30 mg [ketorolac 30 mg/mL (1 mL) injection solution (1 mL)] Route: IVP; ld5 Site: left antecubital; 21:43 Follow up: Response: Pain is decreased ld5 19:51 Drug: NS 0.9% 1000 ml [sodium chloride 0.9 % intravenous solution] Route: IV; Rate: ld5 bolus; Site: left antecubital; 21:43 Follow up: IV Status: Completed infusion; IV Intake: 1000ml ld5 19:51 Drug: Ondansetron 4 mg [ondansetron HCl 2 mg/mL intravenous solution (2 mL)] Route: ld5 IVP; Site: left antecubital; 21:43 Follow up: Response: Nausea is decreased ld5 Signatures: Dispatcher [employer] EDLurdes Mcpherson, Reg Reg gb Emily Chaudhary Laura, RN RN ld5 Manas Trammell, RPA-C RPA-Cck7 Teresa Gilmore RN RN ttb The chart was reviewed and I authenticate all verbal orders and agree with the evaluation and treatment provided.Attachments: 20:33 [facility] Payment Agreement zo 05/22 11:05 T-Sheet-- Draft Copy gb Chart Complete MTDD
--- NOTE | 2016-05-23 22:45 | EDDOCDS ---
Physician Documentation [facility] Name: Lyndsey Waters Age: 25 yrs Sex: Female : 1990 Arrival Date: 05/21/2016 Time: 18:44 Bed I3 / M3 Private MD: Donny Shi Disposition: 05/21/16 21:35 Discharged to Home/Self Care. Impression: Constipation, Calculus of kidney - LEFT, NONOBSTRUCTING. - Condition is Stable. - Discharge Instructions: Constipation, Adult, Kidney Stones. - Prescriptions for Miralax 17 gram/dose - take 17 gram by ORAL route once daily As needed dilute in 8 ounces of water or juice; 1 bottle. - Medication Reconciliation, Local Pharmacy Hours form. - Follow up: Donny Shi; When: 2 - 3 days; Reason: Recheck today's complaints, Continuance of care. - Problem is new. - Symptoms have improved. Historical: - Allergies: no known allergies; - Home Meds: 1. Depo-Provera 150 mg/mL IM syrg every 3 mo (Last dose: Unknown) - PMHx: L-ovarian cyst; - PSHx: Tonsillectomy; Adenoidectomy; - Social history: Smoking status: Patient states was never smoker of tobacco. Patient/guardian denies using alcohol, street drugs, No barriers to communication noted, The patient speaks fluent Polish, Speaks appropriately for age. - Family history: Not pertinent. - : The pt / caregiver states he / she is not on anticoagulants. Home medication list is obtained from the patient. - Exposure Risk Screening:: None identified. 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 3 in. (160.02 cm) (R); Pain 7/10; 21:41 BP 110 / 69; Pulse 89; Resp 16; Temp 97.4; Pulse Ox 99% on R/A; Pain 4/10; ld5 18:46 Body Mass Index 20.73 (53.07 kg, 160.02 cm) lr2 MDM: 19:27 UCG by Nursing ordered. ck7 19:28 Undress patient appropriately for examination ordered. ck7 19:28 IV Saline Lock ordered. ck7 19:28 NS 0.9% 1000 ml IV at bolus once ordered. ck7 19:28 Ondansetron 4 mg IVP once ordered. ck7 19:28 ketorolac 30 mg IVP once ordered. ck7 19:28 UA Ordered. EDMS 19:28 Urine Culture Ordered. EDMS 19:29 Amylase Ordered. EDMS 19:29 Basic Metabolic Profile Ordered. EDMS 19:29 CBC with Diff Ordered. EDMS 19:29 Lipase Ordered. EDMS 19:29 Liver Profile Ordered. EDMS 19:29 NOTHING BY MOUTH+DIET ordered. EDMS 20:19 Financial registration complete. zo 20:26 UA Reviewed. ck7 20:26 Basic Metabolic Profile Reviewed. ck7 20:26 CBC with Diff Reviewed. ck7 20:26 Liver Profile Reviewed. ck7 20:26 Amylase Reviewed. ck7 20:26 Lipase Reviewed. ck7 20:29 CT ABD & PELVIS: No Contrast Ordered. EDMS 20:33 [facility] Payment Agreement was scanned into [employer] and attached to record. zo 21:30 CT ABD & PELVIS: No Contrast Reviewed. ck7 05/22 11:05 T-Sheet-- Draft Copy was scanned into [employer] and attached to record. gb 17:39 Radiology Report was scanned into [employer] and attached to record. gb Point of Care Testing: Urine : 05/21 19:36 hCG Reading: Negative; Control Reading: Positive; jo3 Ranges: Administered Medications: 19:50 Drug: ketorolac 30 mg [ketorolac 30 mg/mL (1 mL) injection solution (1 mL)] Route: IVP; ld5 Site: left antecubital; 21:43 Follow up: Response: Pain is decreased ld5 19:51 Drug: NS 0.9% 1000 ml [sodium chloride 0.9 % intravenous solution] Route: IV; Rate: ld5 bolus; Site: left antecubital; 21:43 Follow up: IV Status: Completed infusion; IV Intake: 1000ml ld5 19:51 Drug: Ondansetron 4 mg [ondansetron HCl 2 mg/mL intravenous solution (2 mL)] Route: ld5 IVP; Site: left antecubital; 21:43 Follow up: Response: Nausea is decreased ld5 Signatures: Dispatcher [employer] EDLurdes Mcpherson, Reg Reg gb Emily Chaudhary Laura, RN RN ld5 Manas Trammell, RPA-C RPA-Cck7 Teresa Gilmore RN RN ttb The chart was reviewed and I authenticate all verbal orders and agree with the evaluation and treatment provided.Attachments: 20:33 [facility] Payment Agreement zo 05/22 11:05 T-Sheet-- Draft Copy gb Chart Complete MTDD
== END 2016-05-21 21:44 | disposition home or self-care (01) ==
LOC: M ED 18:44
DX: K59.00 Constipation, unspecified (principal); N20.0 Calculus of kidney
CPT/HCPCS: 36415; 74176; 80048; 80076; 81001; 81025; 82150; 83690; 85025; 87086; 96361; 96374; 96375; 99284; J1885; J2405

== ENCOUNTER → 2016-09-24 | Outpatient (CLI) | payer OTHER ==
[2016-09-24 18:24] LABS: BASO % 0.3 % (0.0-1.0); EOS % 0.7 % (0.0-3.0); LARGE UNSTAINED CELL # 0.2 K/mm3 (0.0-0.4); LARGE UNSTAINED CELL % 2.3 % (0.0-4.0); LYMPH # 2.3 K/mm3 (1.5-6.5); MEAN CORPUSCULAR HEMOGLOBIN 30.6 pg (27.0-33.0); MEAN CORPUSCULAR HGB CONC 34.9 g/dl (32.0-36.5); MEAN CORPUSCULAR VOLUME 87.7 fl (80.0-96.0); MONO # 0.4 K/mm3 (0.0-0.8); NEUTROPHILS # 3.7 K/mm3 (1.8-7.7); NEUTROPHILS % 55.7 % (36.0-66.0); PLATELET COUNT, AUTOMATED 206 k/mm3 (150-450); RED CELL DISTRIBUTION WIDTH 12.5 % (11.5-14.5); WHITE BLOOD COUNT 6.6 K/mm3 (4.0-10.0)
[2016-09-24 18:44] LABS: ALBUMIN 4.2 GM/DL (3.2-5.2); ALKALINE PHOSPHATASE 123 U/L (45-117); ALT/SGPT 20 U/L (12-78); ANION GAP 6 MEQ/L (8-16); AST/SGOT 12 U/L (15-37); BILIRUBIN,TOTAL 0.4 MG/DL (0.2-1.0); BLOOD UREA NITROGEN 13 MG/DL (7-18); CALCIUM LEVEL 8.9 MG/DL (8.5-10.1); CARBON DIOXIDE LEVEL 27 MEQ/L (21-32); CHLORIDE LEVEL 105 MEQ/L (98-107); CHOLESTEROL LEVEL 153 MG/DL (<200); GLOMERULAR FILTRATION RATE > 60.0 (>60); GLUCOSE, FASTING 81 MG/DL (70-105); POTASSIUM SERUM 3.7 MEQ/L (3.5-5.1); SODIUM LEVEL 138 MEQ/L (136-145); TOTAL PROTEIN 7.7 GM/DL (6.4-8.2); TRIGLYCERIDES LEVEL 53 MG/DL (<150)
== END ==
LOC: M EKG 16:57
PROVIDERS: ATTEND Family Medicine Addiction Medicine
DX: Z00.00 Encounter for general adult medical examination without abnormal findings (principal); R00.2 Palpitations; F41.9 Anxiety disorder, unspecified

== ENCOUNTER → 2016-11-19 | Outpatient (REF) | payer OTHER | LOC: M LAB REF 17:16 | PROVIDERS: ATTEND Obstetrics & Gynecology | DX: Z11.3 Encounter for screening for infections with a predominantly sexual mode of transmission (principal) ==

== ENCOUNTER 2019-01-09 23:59 | Outpatient (CLI) | payer OTHER ==
[~2019-01-09] VITALS: Ht 160 cm; Wt 64.4 kg
[~2019-01-09 23:59] MED LIST changes: -ACET50TA PO; +MAPA500T17 PO; +MILK120011 PO; -MILKSUS PO
[2019-01-10 00:36] VITALS: BP 113/76
[2019-01-10] MEDS ORDERED: LR 1,000 ML IV SCH (01:00)
[2019-01-10] MEDS ORDERED: LR 800 ML IV ONE (01:00)
[2019-01-10 04:33] VITALS: BP 91/53
== END 2019-01-10 06:57 | disposition home or self-care (01) ==
LOC: M LDO 23:59
PROVIDERS: ATTEND Obstetrics & Gynecology
DX: O26.893 Other specified pregnancy related conditions, third trimester (principal); R10.2 Pelvic and perineal pain; W01.10XA Fall on same level from slipping, tripping and stumbling with subsequent striking against unspecified object, initial encounter; Y92.89 Other specified places as the place of occurrence of the external cause; Y93.89 Activity, other specified; Y99.8 Other external cause status; Z3A.32 32 weeks gestation of pregnancy

== ENCOUNTER 2024-11-11 13:42 | Emergency (ER) | payer OTHER ==
[~2024-11-11] VITALS: Ht 157.5 cm; Wt 56.1 kg
[2024-11-11] MEDS: NS (Normal Saline) 0.9% 1,000 ML IV ONE (16:40)
[2024-11-11] MEDS: PANTOPRAZOLE 40MG VIAL IV ONE (16:56)
[2024-11-11 17:03] LABS: BASO # 0.0 10^3/uL (0.0-0.2); BASO % 0.6 % (0.0-1.0); EOS # 0.1 10^3/uL (0.0-0.5); EOS % 1.1 % (0.0-3.0); LYMPH # 2.7 10^3/uL (1.5-5.0); LYMPH % 38.2 % (24.0-44.0); MONO # 0.6 10^3/uL (0.0-0.8); MONO % 9.2 % (2.0-8.0); NEUTROPHILS # 3.5 10^3/uL (1.5-8.5); NEUTROPHILS % 50.3 % (36.0-66.0); PLATELET COUNT, AUTOMATED 224 10^3/uL (150-450)
[2024-11-11 17:18] LABS: KETONE, URINE AUTO RFX NEGATIVE (NEGATIVE); LEUKOCYTE ESTERASE UR AUTO RFX NEGATIVE (NEGATIVE); MUCUS, URINE RFX SMALL (NEGATIVE); NITRITE, URINE AUTO RFX NEGATIVE (NEGATIVE); RBC, URINE AUTO RFX 1 /HPF (0-3); SQUAM EPITHELIAL CELL UR AURFX 5 /HPF (0-6); WBC, URINE AUTO RFX 2 /HPF (0-3)
[2024-11-11 17:27] LABS: INR 1.17
[2024-11-11 17:33] LABS: ALT/SGPT 13 U/L (7.0-40); AST/SGOT 13 U/L (<34); CALCIUM LEVEL 9.4 MG/DL (8.5-10.1); CARBON DIOXIDE LEVEL 29 MMOL/L (20-31); CHLORIDE LEVEL 104 MMOL/L (98-107); CREATININE FOR GFR 0.64 MG/DL (0.55-1.30); GLOMERULAR FILTRATION RATE > 90.0 (>60); POTASSIUM SERUM 4.4 MMOL/L (3.5-5.1); SODIUM LEVEL 144 MMOL/L (136-145)
[2024-11-11 17:44] LABS: HCG, SERUM QUALITATIVE NEGATIVE (NEGATIVE)
[2024-11-11 18:23] VITALS: BP 100/55; TEMP 97.8; O2SAT 100
[2024-11-11] MEDS ORDERED: SUCR1SS PO (18:41)
[2024-11-11] MEDS: SUCRALFATE SUSP 1GM/10ML UD PO ONE (18:47)
== END 2024-11-11 18:50 | disposition home or self-care (01) ==
LOC: M ED 13:42
DX: R10.9 Unspecified abdominal pain (principal); K92.2 Gastrointestinal hemorrhage, unspecified; Z79.899 Other long term (current) drug therapy
CPT/HCPCS: 80047; 80053; 81001; 83605; 83690; 84703; 85025; 85384; 85610; 85730; 93005; 93041; 96361; 96374; 99284; J2470